=== PATIENT | male | born 1955 ===

== ENCOUNTER 2023-11-22 10:00 | Inpatient (IN) | payer OTHER ==
[~2023-11-22] VITALS: Ht 180.3 cm; Wt 95.3 kg
[2023-11-22] MEDS ORDERED: TAMS0.4C PO (11:10)
[2023-11-22] MEDS ORDERED: SYNTHROID88 MCG PO (11:10)
[2023-11-22] MEDS ORDERED: PROSCAR5 MG PO (11:10)
[2023-11-22] MEDS ORDERED: BRIMONIDINE TART5 M1 OP (11:11)
[2023-11-22] MEDS ORDERED: ZOCOR20 MG PO (11:11)
[2023-11-22 11:44] LABS: HEMATOCRIT 46.3 % (39.0-48.0); HEMOGLOBIN 15.6 g/dL (13-16.00); MEAN CELL VOLUME 92.2 fL (80.0-100.00); MEAN CORPUSCULAR HEMOGLOBIN 31.1 pg (27.00-32.0); MEAN CORPUSCULAR HGB CONC 33.7 g/dl (32.0-36.0); PLATELET COUNT 199 K/uL (150-450); RED BLOOD COUNT 5.03 M/uL (4.00-6.00); RED CELL DISTRIBUTION WIDTH 13.7 % (11.5-14.5)
[2023-11-22 11:48] LABS: URINE APPEARANCE Clear; URINE BILIRRUBIN Negative (NEGATIVE); URINE BLOOD Negative; URINE COLOR Dark Yellow; URINE GLUCOSE Negative (NEGATIVE); URINE LEUKOCYTE Negative; URINE NITRATE Negative; URINE PROTEIN Negative (NEGATIVE); URINE UROBILINOGEN 0.2 E.U./dl
[2023-11-22 11:52] LABS: URINE EPITHELIAL CELLS 1.9 uL (0.0-38.8); URINE RBC 5.1 uL (0.0-20.8)
[2023-11-22 11:55] LABS: URINE WBC 1.2 uL (0.0-23.2)
[2023-11-22 12:13] LABS: INR 1.07; PARTIAL THROMBOPLASTIN TIME 29.3 SECONDS (22.0-34.0); PROTHROMBIN TIME 11.2 SECONDS (9.0-11.5)
[2023-11-22 12:24] LABS: CALCIUM 8.7 mg/dL (8.5-10.1); CREATININE SERUM 0.82 mg/dL (0.70-1.30); GFR 93.15; POTASSIUM 4.51 mEq/L (3.5-5.1)
[2023-11-30 07:05] LABS: HEMATOCRIT 32.9 % (39.0-48.0); HEMOGLOBIN 11.5 g/dL (13-16.00); MEAN CELL VOLUME 89.1 fL (80.0-100.00); MEAN CORPUSCULAR HEMOGLOBIN 31.2 pg (27.00-32.0); PLATELET COUNT 194 K/uL (150-450); RED BLOOD COUNT 3.69 M/uL (4.00-6.00); RED CELL DISTRIBUTION WIDTH 13.3 % (11.5-14.5)
[2023-11-30 12:34] LABS: ALBUMIN 2.9 gm/dL (3.4-5.0); CREATININE SERUM 0.98 mg/dL (0.70-1.30); GFR 75.83; POTASSIUM 4.18 mEq/L (3.5-5.1)
[2023-11-30 12:53] LABS: PHOSPHOROUS 1.7 mg/dL (2.5-4.9)
== END 2023-11-30 17:20 | disposition home or self-care (01) | DRG 708 ==
LOC: O/R 11-29 05:10 → SURH 11-29 07:00 → SURG 11-29 11:55
PROVIDERS: ADMIT Urology; ATTEND Urology
PROC: 8E0W4CZ Robotic Assisted Procedure of Trunk Region, Percutaneous Endoscopic Approach (ICD-10-PCS; 2023-11-29)
PROC: 0VT04ZZ Resection of Prostate, Percutaneous Endoscopic Approach (ICD-10-PCS; principal; 2023-11-29 07:00)
DX: N40.1 Benign prostatic hyperplasia with lower urinary tract symptoms (principal); Z20.822 Contact with and (suspected) exposure to COVID-19